=== PATIENT | male | born 1985 | race Caucasian/White ===

== ENCOUNTER 2023-05-19 10:53 | Outpatient (OUT) | payer BC, SELFPAY ==
--- NOTE | 2023-05-19 11:10 | XR_ITS ---
[place] [id number] Patient Name: CRICKET SHERIFF MRN: [id number] date: 1985 Sex: M Assigned Patient Location: RAD Current Patient Location: [facility] Accession/Order Number: [id number] Exam Date: 05/19/2023 11:03 Report Date: 05/19/2023 13:40 At the request of: VASHTI ERNANDEZ Procedure: XR knee RT 3V EXAM: XR knee RT 3V HISTORY: Knee Pain M25.561 COMPARISON: None. TECHNIQUE: 3 views FINDINGS: No acute fracture or dislocation. No significant degenerative changes. Unremarkable soft tissues. XR/XR knee RT 3V IMPRESSION: Unremarkable exam. Electronically authenticated by: KATYH LYMAN Date: 05/19/2023 13:40
== END 2023-05-19 10:54 | disposition home or self-care (01) ==
PROVIDERS: PCP Internal Medicine; Visit Provider Family Medicine
DX: M25.561 Pain in right knee (principal)
CPT/HCPCS: 73562